=== PATIENT | male | born 1965 | race Hispanic/Latino ===

== ENCOUNTER 2020-11-14 10:46 | Inpatient (IN) | payer SELFPAY ==
[~2020-11-14] VITALS: Ht 157.5 cm; Wt 80.3 kg
[2020-11-14] MEDS ORDERED: SODIUM CHLORIDE 0.9% 1000ML 1,000 ML IV SCH (11:00)
[2020-11-14 11:26] LABS: BASOPHILS % 0.3 % (0.0-1.0); EOSINOPHILS % 0.1 % (0.0-6.0); HEMATOCRIT 26.1 % (38.2-49.6); HEMOGLOBIN 8.5 g/dL (14.0-18.0); LYMPHOCYTES % 6.5 % (18.0-39.1); MEAN CORPUSCULAR HGB CONC 32.6 g/dL (31-35); MEAN CORPUSCULAR VOLUME 92.2 fL (81-99); MONOCYTES # (AUTO) 0.6 (0.2-0.8); MONOCYTES % 3.8 % (4.4-11.3); NEUTROPHILS # (AUTO) 13.9 (2.1-6.9); NEUTROPHILS % 87.3 % (38.7-80.0); PLATELET COUNT 116 x10e3/uL (140-360); RED BLOOD COUNT 2.83 x10e6/uL (4.3-5.7); RED CELL DISTRIBUTION WIDTH 13.6 % (11.7-14.4)
[2020-11-14 11:57] LABS: ALBUMIN/GLOBULIN RATIO 0.8 (0.8-2.0); ANION GAP 26.2 mmol/L (8-16); CALCIUM 7.2 mg/dL (8.4-10.2); CREATININE, SERUM 1.11 mg/dL (0.72-1.25); POTASSIUM 4.2 mmol/L (3.5-5.1)
[2020-11-14 12:27] LABS: MAGNESIUM 2.1 MG/DL (1.3-2.1)
[2020-11-14] MEDS ORDERED: Vancomycin IV 1 GM in SODIUM CHLORIDE 0.9% 250ML 250 ML IV ONE (12:45)
[2020-11-14] MEDS ORDERED: INSULIN REGULAR, HUMAN 3ML VL 100 UNIT in SODIUM CHLORIDE 0.9% 100 ML 99 ML IV SCH ×2 (12:45)
[2020-11-14] MEDS ORDERED: KCL 20MEQ/.9 SOD CHL 1,000 ML IV ONE (12:45)
[2020-11-14] MEDS ORDERED: PIPERACILLIN/TAZOBACTAM 4.5 GM in SODIUM CHLORIDE 0.9% 100 ML IV ONE (13:00)
[2020-11-14] MEDS ORDERED: OCTREOTIDE ACETATE 500 MCG in SODIUM CHLORIDE 0.9% 250ML 249 ML IV SCH ×2 (13:45→14:15)
[2020-11-14] MEDS ORDERED: CEFTRIAXONE 1 GM VIAL IM ONE (13:45)
[2020-11-14 14:03] LABS: INR 1.77; PROTHROMBIN TIME 20.9 seconds (11.9-14.5)
[2020-11-14 14:04] LABS: PARTIAL THROMBOPLASTIN TIME 36.9 seconds (23.8-35.5)
[2020-11-14] MEDS: Pantoprazole IV 40 MG in SODIUM CHLORIDE 0.9% 50ML 50 ML IV SCH ×2 (14:15→18:45)
[2020-11-14] MEDS ORDERED: SODIUM CHLORIDE 0.9% 250ML 250 ML IV ONE (14:30)
[2020-11-14] MEDS ORDERED: PIPERACILLIN/TAZO 4.5 GM 100 ML IV ONE (16:00)
[2020-11-14 16:58] LABS: ANION GAP 38.5 mmol/L (8-16); CREATININE, SERUM 1.32 mg/dL (0.72-1.25); POTASSIUM 4.5 mmol/L (3.5-5.1)
[2020-11-14] MEDS ORDERED: LACTATED RINGER'S 1,000 ML ONE (17:23)
[2020-11-14 17:42] LABS: ABG HCO3 6 mmol/L (22-26); ABG PCO2 21 mmHg (35-45); ABG PH 7.04 (7.35-7.45); ABG PO2 93 mmHg (80-105); ABG TCO2 6
[2020-11-14] MEDS ORDERED: IOPAMIDOL 370 MG/ML 200 ML INFUS..BTL INJ ONE (17:54)
[2020-11-14] MEDS ORDERED: SODIUM CHLORIDE 0.9% 50ML 50 ML ONE (17:55)
[2020-11-14] MEDS ORDERED: SODIUM CHLORIDE 0.9% 250ML 250 ML ONE (18:00)
[2020-11-14] MEDS ORDERED: METRONIDAZOLE 500MG/NS 100ML 100 ML IV ONE (18:00)
[2020-11-14] MEDS ORDERED: MEROPENEM 1 GM in SODIUM CHLORIDE 0.9% 100 ML IV SCH (18:15)
[2020-11-14 18:49] LABS: SALICYLATE < 5.0 mg/dL (0-30)
[2020-11-14 18:56] LABS: CLARITY,URINE SL CLOUDY (CLEAR); COLOR,URINE STRAW (YELLOW); KETONES,URINE 1+ (NEGATIVE); LEUKOCYTE ESTERASE ,URINE NEGATIVE (NEGATIVE); NITRITE,URINE NEGATIVE (NEGATIVE); PROTEIN,URINE DIPSTICK 1+ (NEGATIVE); URINE UROBILINOGEN 0.2 mg/dL (0.2 - 1)
[2020-11-14 19:12] LABS: AMORPHOUS SEDIMENT,URINE MANY (FEW); BACTERIA,URINE FEW /HPF
[2020-11-14] MEDS: D5NS/KCL 20MEQ 1,000 ML IV SCH ×2 (20:30→23:11)
[2020-11-14 22:25] LABS: % IRON SATURATION 88 % (15-50); IRON 160 ug/dL (65-175); TOTAL IRON BINDING CAPACITY 182 ug/dL (261-478); TRANSFERRIN 130 mg/dL (174-364)
[2020-11-14 22:41] VITALS: BP 99/60
[2020-11-15] MEDS ORDERED: THIAMINE HCL INJ 100 MG/ML 2ML VIAL IV SCH (09:00)
[2020-11-16 18:29] LABS: OSMOLALITY,SERUM OSMOMETER 332 mOsmol/kg (275-295)
== END 2020-11-14 22:41 | disposition short-term general hospital (02) | DRG 871 ==
LOC: ER 10:55 → ERHOLD 13:27
PROVIDERS: ADMIT Internal Medicine; ATTEND Internal Medicine
PROC: 30243N1 Transfusion of Nonautologous Red Blood Cells into Central Vein, Percutaneous Approach (ICD-10-PCS; principal; 2020-11-14)
DX: A41.9 Sepsis, unspecified organism (principal); E11.10 Type 2 diabetes mellitus with ketoacidosis without coma; K65.9 Peritonitis, unspecified; R65.21 Severe sepsis with septic shock; K92.2 Gastrointestinal hemorrhage, unspecified; F10.20 Alcohol dependence, uncomplicated; D69.59 Other secondary thrombocytopenia; K70.30 Alcoholic cirrhosis of liver without ascites
CPT/HCPCS: 36415; 36569; 36600; 51700; 70450; 71045; 74177; 80048; 80053; 80320; 80329; 81001; 82140; 82607; 82693; 82746; 82805; 82948; 83540; 83605; 83690; 83735; 83930; 84466; 84484; 85025; 85045; 85610; 85730; 86850; 86900; 86920; 87040; 93005; 99285; J0696; J1817; J2185; J2353; J2543; J3370; J7030; J7050; J7121; P9016; Q9967; U0002